=== PATIENT | male | born 1940 | race Caucasian/White ===

== ENCOUNTER 2017-02-09 15:25 | Observation (INO) | payer MEDICARE ==
[~2017-02-09] VITALS: Ht 185.4 cm; Wt 101.0 kg
[~2017-02-09 15:25] MED LIST: ASCO100089 PO; ASPI-973 PO; ATOR80TA PO; LISI10TA PO; METO25TA6 PO; ONDA-54 PO; POLY17PO6 PO; TAMS0.4C98 PO; ZYL100 PO
[2017-02-09 15:37] VITALS: BP 90/59; PULSE 58; RESP 16; O2SAT 98
--- NOTE | 2017-02-09 15:48 | ED.REPORT ---
HPI-General Illness Date of Service Feb 09, 2017 ED Provider: Christ Torres MD The pt is a 76 year old male with a history of hypertension, dementia, ischemic cardiomyopathy, CAD and hyperlipidemia who is referred to the ED from Urgent Care due to a fall versus syncopal event. The pt was reportedly arguing with his spouse yesterday, which involved "lots of pushing and shoving," then apparently left the home to go to a rest stop. He reportedly tripped and fell on cement at that point, hitting his head and losing consciousness for approximately 45 minutes. The pt returned home this morning complaining of a laceration on the left side of his forehead, left eye swelling and bruising, and rib pain. He was evaluated by paramedics but refused care until he was seen in Urgent Care. The patient repeatedly changes his story at one point stating that he had a syncopal event that resulted in his fall and later admitting that he does not know what happened. The patient's daughter is concerned about his safety at home. Nursing Notes Stated Complaint: FALL Chief Complaint: Multiple Trauma/Fall Nursing Notes Reviewed: Yes Allergies: Coded Allergies: losartan (Verified Allergy, Severe, Nausea,Vomiting, 02/09/17) Scheduled Ascorbic Acid (Vitamin C) 1,000 Mg Tab.chew 1,000 MG PO DAILY Aspirin (Aspirin) 81 Mg Tablet 81 MG PO DAILY Atorvastatin (Lipitor) 80 Mg Tablet 80 MG PO DAILY Lisinopril (Lisinopril) 10 Mg Tablet 5 MG PO BID Metoprolol Tartrate (Metoprolol Tartrate) 25 Mg Tablet 12.5 MG PO BID Ondansetron (Ondansetron) 8 Mg Tablet 8 MG PO Q8HRS Tamsulosin (Flomax) 0.4 Mg Capsule 0.4 MG PO DAILY Scheduled PRN Polyethylene Glycol 3350 (Miralax) 17 Gm Powd.pack 17 GM PO DAILY PRN PRN For Constipation General Time Seen by MD: 15:44 Chief Complaint Other (Fall) Hx Obtained From: Patient, Daughter Arrived By: Walk-in Sudden in Onset?: Yes Onset Occurred: 5 - 8 hours ago Symptom Duration: Since onset Recent Healthcare: No recent hospitalization, Recent doctor visit Similar Sx Previous: No Past Medical History 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 Colemna PCP: Dr. Duque Urologist: Dr. Hendrix Past Medical History bladder tumor with right hydronephrosis abdominal aortic aneurysm ischemic cardiomyopathy dementia hypertension hyperlipidemia osteoarthritis depression Reports: Coronary artery disease Past Surgical History Cardiac stent placement left hip ORIF right ureteral stent and nephrostomy tube placed on 01/18/2016 Smoking History Never Smoker Social History Alcohol Use: Denies alcohol use Other Social History: Good social support, , Local resident Ambulatory Status Independent Review of Systems laceration Full Review of Systems Respiratory: Denies: Non-productive cough, Shortness of breath Cardiovascular: Reports: Chest pain (ribs) GI: Denies: Abdominal pain, Vomiting Musculoskeletal: Denies: Back pain, Neck pain Skin: Denies Rash Neurologic: Reports: Change LOC Complete sys rev & neg: except as marked. Physical Exam Vital Signs Vital Signs Date Time Temp Pulse Resp B/P Pulse Ox O2 Delivery O2 Flow Rate FiO2 02/09/17 15:37 36.9 58 16 90/59 98 Room Air Initial VS: Reviewed General/Constitutional: Awake, Alert Head / Eyes: Normocephalic, PERRL, EOMI 2 cm laceration on the left forehead midface stable scalp appears atraumatic ENT: Atraumatic, Airway patent, Mucous membranes moist Neck: Supple, Full range of motion mild diffuse midline cervical tenderness no palpable bony deformities or step-offs Respiratory / Chest: Breath sounds NL, Breath sounds = bilat, No respiratory distress tenderness about left anterior costal margin no crepitus or palpable deformity Cardiovascular: Heart rate NL, Regular rhythm, Heart sounds NL, No gallop, No murmurs, No rubs Abdomen: Atraumatic, Soft, Non-tender, No distention Back: Atraumatic, Full range of motion back appears grossly atraumatic no midline thoracic or lumbar tenderness, bony deformities or step-offs Upper Extremities Upper Extremity / MS: Full range of motion, Neurologic intact, Vascular intact 1 cm laceration on the lateral aspect of the left hand and the base of the fifth digit Lower Extremity / Pelvis / MS: Atraumatic, Full range of motion pelvis stable to rock and compression Skin: Color NL, No rash, Warm, Dry contusion and 2 cm laceration left brow ecchymosis left periorbital area Neurologic: Oriented X3, Speech NL, No motor deficits, No sensory deficits Psychiatric: Affect NL, Mood NL Interpretation & Diagnostics Interpretation & Diagnostics: Rib X-Ray: IMPRESSION: Acute rib fracture is not identified. Dictated by: Bairon Sargent M.D. on 02/09/2017 at 19:50 Approved by: Bairon Sargent M.D. on 02/09/2017 at 19:53 Lab Results Interpretation Result Diagram: 02/09/17 1700 02/09/17 1700 Test 02/09/17 17:00 White Blood Count 10.8th/mm3 (3.8-10.1) Red Blood Count 4.09mil/mm3 (4.40-5.80) Hemoglobin 12.6g/dL (13.8-17.2) Hematocrit 37.8% (41.0-50.0) Mean Corpuscular Volume 92.4fL (81-100) Mean Corpuscular Hemoglobin 30.8pg (27.0-35.0) Mean Corpuscular Hemoglobin Concent 33.3% (32.0-37.0) Red Cell Distribution Width 14.4% (12.3-15.4) Platelet Count 241bil/L (150-400) Neutrophils (%) (Auto) 59.8% (40-74) Lymphocytes (%) (Auto) 25.3% (14-46) Monocytes (%) (Auto) 11.0% (4-12) Eosinophils (%) (Auto) 3.4% (0-5) Basophils (%) (Auto) 0.4% (0-3) Prothrombin Time 10.1sec (8.1-12.5) Prothromb Time International Ratio 0.95ratio Sodium Level 137mEq/L (134-144) Potassium Level 4.7mEq/L (3.5-5.2) Chloride Level 102mEq/L (97-108) Carbon Dioxide Level 21mmol/L (18-29) Blood Urea Nitrogen 35mg/dL (8-27) Creatinine 1.47mg/dL (0.76-1.27) Estimat Glomerular Filtration Rate 49mL/min (>59) Glucose Level 101mg/dL (60-99) Calcium Level 9.1mg/dL (8.5-10.1) Total Bilirubin 0.5mg/dL (0.0-1.2) Aspartate Amino Transf (AST/SGOT) 33U/L (0-50) Alanine Aminotransferase (ALT/SGPT) 24U/L (0-44) Alkaline Phosphatase 131U/L (25-160) Troponin T < 0.010ug/L (0.0-0.011) Total Protein 7.4g/dL (6.4-8.4) Albumin 3.9g/dL (3.4-5.0) Alcohols < 10mg/dL (0-10) ECG Interpretation ECG Interpretation: normal sinus rhythm with a rate of 54 borderline prolonged DE intervals borderline ST segment elevation in V1 and V2 T wave flattening in V5 and V6 inferior Q waves present when compared to prior dated 01/18/2017, multiple PVCs no longer present and borderline anteroseptal elevation remains Time: 17:45 Interpreted by: ED physician X-Ray Chest Interpretation Chest Xray Interpretation: IMPRESSION: No acute disease or traumatic change seen in the AP of the chest. Dictated by: Bairon Sargent M.D. on 02/09/2017 at 16:57 Approved by: Bairon Sargent M.D. on 02/09/2017 at 16:58 Interpretation / Wet Read by: Interpret - Radiologist X-Ray Interpretation Xray Interpretation: IMPRESSION: No fracture is seen of the pelvic ring or obturator rings or either hip joint. No fracture is seen in the AP view of the left femur. Dictated by: Bairon Sargent M.D. on 02/09/2017 at 16:59 Approved by: Bairon Sargent M.D. on 02/09/2017 at 17:02 X-Ray Ordered: Pelvis Interpretation / Wet Read by: Interpret - Radiologist CT Head Interpretation IMPRESSION: No intracranial acute abnormality is seen. Nondisplaced fracture of the anterior and posterior toro of the left maxillary sinus with a small amount of fluid air interfaced in the left maxillary sinus. Dictated by: Bairon Sargent M.D. on 02/09/2017 at 16:34 Approved by: Bairon Sargent M.D. on 02/09/2017 at 16:39 Interpretation / Wet Read by: Interpret - Radiologist CT C-Spine Interpretation IMPRESSION: 1. No fracture identified. No change is seen in the cervical spine since the study of 10/09/14 2. Severe disc degenerative disease from the C. three fourths through the C6-7 level with prominent anterior osteophytes flowing from C4-C5 and C6. Dictated by: Bairon Sargent M.D. on 02/09/2017 at 16:39 Approved by: Bairon Sargent M.D. on 02/09/2017 at 16:42 Interpretation / Wet Read by: Interpret - Radiologist Procedures Laceration Management Time: 17:05 Procedure Performed by: ED physician Consent / Setup / Site Prep: Informed consent provided, Consent from patient , Time-out performed, Hand hygiene observed, Stand sterile technique Location of Wound: left forehead Wound Length: 2 cm Local Anesthesia: Lidocaine w epi 1% Digital Block: No Wound Preparation: Normal saline Debridement: Minimal Irrigation: Copious Foreign Body Explore / Removal: Explored for foreign body Undermining / Margins: Flaps aligned Repair Skin: ___ O (5), Nylon # Sutures - Skin: 7 Suture Technique: Simple Post-Procedure / Complications: Antibiotic oint applied, Dressing applied, No complications, Condition improved, Tolerated procedure well, Patient stable Laceration Management: Applied Bacitracin and gauze Time: 17:05 Procedure Performed by: ED physician Consent / Setup / Site Prep: Informed consent provided, Consent from patient , Time-out performed, Hand hygiene observed, Stand sterile technique Location of Wound: flap laceration, lateral aspect of the left hand and the base of the fifth digit Wound Length: 1 cm Local Anesthesia: Lidocaine 1% Digital Block: Yes Digit Involved: Little finger left Wound Preparation: Normal saline Debridement: None Irrigation: Copious Foreign Body Explore / Removal: Explored for foreign body Undermining / Margins: Flaps aligned Repair Skin: ___ O (5), Nylon # Sutures - Skin: 2 Suture Technique: Simple Post-Procedure / Complications: Antibiotic oint applied, Dressing applied, No complications, Condition improved, Tolerated procedure well, Patient stable Re-Eval/Medical Decision Med Decision/Clinical Course The pt is a 76 year old male with a history of hypertension, dementia, ischemic cardiomyopathy, CAD and hyperlipidemia who is referred to the ED from Urgent Care due to a fall versus syncopal event. The pt was reportedly arguing with his spouse yesterday, which involved "lots of pushing and shoving," then apparently left the home to go to a rest stop. He reportedly tripped and fell on cement at that point, hitting his head and losing consciousness for approximately 45 minutes. The pt returned home this morning complaining of a laceration on the left side of his forehead, left eye swelling and bruising, and rib pain. He was evaluated by paramedics but refused care until he was seen in Urgent Care. The patient repeatedly changes his story at one point stating that he had a syncopal event that resulted in his fall and later admitting that he does not know what happened. The patient's daughter is concerned about his safety at home. Here in the emergency department the patient is afebrile with stable vital signs and examination as above. Upon arrival the patient was placed in a cervical collar. Airway, breathing and circulation were intact. Secondary survey was performed as documented above. Laboratory studies notable as below: CBC unremarkable CMP indicates acute kid injury with a BUN of35 Creatinine 1.47 Troponin negative Coagulation studies normal Alcohol negative EKG: normal sinus rhythm with a rate of 54 borderline prolonged DE intervals borderline ST segment elevation in V1 and V2 T wave flattening in V5 and V6 inferior Q waves present when compared to prior dated 01/18/2017, multiple PVCs no longer present and borderline anteroseptal elevation remains CT Head: IMPRESSION: No intracranial acute abnormality is seen. Nondisplaced fracture of the anterior and posterior toro of the left maxillary sinus with a small amount of fluid air interfaced in the left maxillary sinus. CT Cervical Spine: IMPRESSION: 1. No fracture identified. No change is seen in the cervical spine since the study of 10/09/14 2. Severe disc degenerative disease from the C. three fourths through the C6-7 level with prominent anterior osteophytes flowing from C4-C5 and C6. Rib X-Ray: IMPRESSION: Acute rib fracture is not identified. Chest X-Ray: IMPRESSION: No acute disease or traumatic change seen in the AP of the chest. Pelvis X-Ray: IMPRESSION: No fracture is seen of the pelvic ring or obturator rings or either hip joint. No fracture is seen in the AP view of the left femur. Patient presents with multiple traumatic injuries. His lacerations were repaired as documented above. He has a maxillary fracture which is likely nonoperative. This has been discussed with ENT and they will assist in his management on an inpatient basis. The patient's pain has been treated with hydromorphone and he was given IV fluids. The patient's EKG was initially not normal there were no obvious findings that would explain his possible syncope. The patient was maintained on telemetry monitoring demonstrated no significant arrhythmias. He had no significant electrolyte abnormalities. He was noted to have acute kidney injury likely consistent with dehydration. The cause of his potential syncope remains unclear. This was unwitnessed and I am unable to determine whether this could have been secondary to a seizure-like event though he has no history thereof. The patient is not safe to be discharged home as he is suffering from dementia, is not felt to be safe in his current living situation and has been falling and sustaining traumatic injuries. The patient has been admitted to the hospitalist service for further syncope workup, ongoing monitoring and ongoing management of his traumatic injuries. He was transferred in stable condition. Time of Eval: 15:44 Patient Status: Condition improved Re-Evaluation/Progress Note: Pt informed of the diagnosis and plan for admission during the initial interview. The pt understands and agrees with the plan. All questions are addressed at this time. Consultation #1: Referral / Consult Name: Joy Figueroa DO Consulted With: Hospitalist Call Returned at: 17:55 Nutrition Faculty Member: Agrees with eval, Agrees with plan, Accepts admit Note: Spoke with Dr. Figueroa, hospitalist, regarding pt's case. Dr. Figueroa agrees with the evaluation and agrees to admit the pt. Consultation #2: Referral / Consult Name: jJ Britt MD Consulted With: ENT Call Returned at: 18:04 Nutrition Faculty Member: Agrees with eval, Agrees with plan Note: Consulted with Dr. Britt, ENT, regarding pt's case. Dr. Britt agrees with the evaluation and plan. Counseled Regarding: Diagnosis, Lab results, Need for admission Discharge & Departure Primary Impression: Syncope Syncope type: unspecified Qualified Code: R55 - Syncope and collapse Additional Impressions: Left maxillary fracture Encounter type: initial encounter Fracture type: closed Qualified Code: S02.40DA - Maxillary fracture, left side, initial encounter for closed fracture Forehead laceration Encounter type: initial encounter Qualified Code: S01.81XA - Laceration without foreign body of other part of head, initial encounter Bradycardia Laceration of left hand Encounter type: initial encounter Foreign body presence: without foreign body Qualified Code: S61.412A - Laceration without foreign body of left hand, initial encounter Dementia Dementia type: unspecified type Dementia behavioral disturbance: with behavioral disturbance Qualified Code: F03.91 - Unspecified dementia with behavioral disturbance Altered mental status Altered mental status type: unspecified Qualified Code: R41.82 - Altered mental status, unspecified Disposition: ADMITTED TO HOSPITAL Discharge Condition All VS Reviewed: Yes Condition: Stable Referrals: Tank Duque DO (PCP) Scribe Attestation Portions of this note were transcribed by Kailey Bustamante. I, Dr. Torres personally performed the history, physical exam and medical decision-making; I reviewed and confirmed the accuracy of the information in the transcribed note. copies to: Tank Duque Beck O MD Feb 09, 2017 15:48 KAILEY BUSTAMANTE Feb 09, 2017 15:55
--- NOTE | 2017-02-09 16:40 | DRSVH ---
PROCEDURE: CT BRAIN WITHOUT CONTRAST ([id number]) INDICATIONS: trauma TECHNIQUE: Noncontrast 4.5 mm thick angled axial sections acquired from the foramen magnum to the vertex, with c oronal reformats. COMPARISON: [facility], CT, BRAIN W/O CONTRAST, 06/03/2011, 16:37. FINDINGS: Image quality: Excellent. CSF spaces: Basal cisterns are patent. No extra-axial fluid collections. The ventricles are symmet justin in size and shape. Brain: No intracranial bleeds or masses. There is a small extra-axial focus of abnormal signal that is unchanged in the left frontal area in the anterior midline and above the sinuses and series 4 imag e 24 that is unchanged since at least 06/03/11. There is cerebral volume loss for age, with resultant ventricular and sulcal prominence. There are periventricular and deep white matter chronic small ves mono ischemic changes. There is intracranial internal carotid artery atherosclerosis. Skull and face: There is a nondisplaced fracture of the left maxillary sinus posteriorly seen on seri es 3 images 5 and 6 and of the anterior wall of the left maxillary sinus and series 3 image 5 there i s some fluid in the left maxillary sinus. Calvarium and other visualized facial bones appear intact, without suspicious lesions. Sinuses: Visualized sinuses and mastoids are clear. IMPRESSION: No intracranial acute abnormality is seen. Nondisplaced fracture of the anterior and posterior toro of the left maxillary sinus with a small am ount of fluid air interfaced in the left maxillary sinus. Dictated by: Bairon Sargent M.D. on 02/09/2017 at 16:34 Approved by: Bairon Sargent M.D. on 02/09/2017 at 16:39
--- NOTE | 2017-02-09 16:43 | DRSVH ---
PROCEDURE: CT CERVICAL SPINE WITHOUT CONTRAST ([id number]) INDICATIONS: trauma TECHNIQUE: Noncontrast 3 mm thick sections acquired from the skull base to the T4 level. Sagittal and coronal r eformats were then constructed. For radiation dose reduction, the following was used: automated exp osure control, adjustment of mA and/or kV according to patient size. COMPARISON: [facility], CT, C-SPINE W/O CONTRAST, 09/30/2014, 14:32. FINDINGS: Image quality: Include Bones: No fractures or dislocations. Visualized superior ribs are intact. Soft tissues: Prevertebral soft tissues are normal in thickness. No paravertebral hematomas. No ap ical pneumothoraces. IMPRESSION: 1. No fracture identified. No change is seen in the cervical spine since the study of 10/09/14 2. Severe disc degenerative disease from the C. three fourths through the C6-7 level with prominent a nterior osteophytes flowing from C4-C5 and C6. Dictated by: Bairon Sargent M.D. on 02/09/2017 at 16:39 Approved by: Bairon Sargent M.D. on 02/09/2017 at 16:42
[2017-02-09] MEDS ORDERED: Ondansetron 2 mg/mL 2 mL Inj IVPUSH PRN ×2 (16:45→18:50)
[2017-02-09] MEDS ORDERED: Alum-Mag Hydrox-Simeth 30 mL Suspension PO PRN ×3 (16:45→18:55)
--- NOTE | 2017-02-09 17:00 | DRSVH ---
PROCEDURE: X-RAY CHEST, TWO VIEWS ([id number]) INDICATIONS: trauma TECHNIQUE: 2 views of the chest were acquired. COMPARISON: [facility], CR, XR CHEST 1VW (PORTABLE), 01/18/2016, 11:43. FINDINGS: Surgical changes and devices: site monitor leads are seen over the chest. Lungs and pleura: No pleural effusions or pneumothorax. Lungs are clear. Mediastinum: Mediastinal contours are normal. Heart size is normal. Bones and chest wall: No suspicious bony abnormalities. Soft tissues appear unremarkable. IMPRESSION: No acute disease or traumatic change seen in the AP of the chest. Dictated by: Bairon Sargent M.D. on 02/09/2017 at 16:57 Approved by: Bairon Sargent M.D. on 02/09/2017 at 16:58
--- NOTE | 2017-02-09 17:03 | DRSVH ---
PROCEDURE: X-RAY PELVIS, ONE OR TWO VIEWS ([id number]) INDICATIONS: trauma TECHNIQUE: An AP of the pelvis and an AP of the left femur were provided. COMPARISON: None. FINDINGS: Bones: No fractures or dislocations. No suspicious bony lesions. Previous intramedullary jannette and ca nnulated screws in the left femur are noted for fixation of a previous proximal femoral fracture. Soft tissues: Visualized bowel gas pattern is normal. No suspicious soft tissue calcifications. IMPRESSION: No fracture is seen of the pelvic ring or obturator rings or either hip joint. No fracture is seen in the AP view of the left femur. Dictated by: Bairon Sargent M.D. on 02/09/2017 at 16:59 Approved by: Bairon Sargent M.D. on 02/09/2017 at 17:02
[2017-02-09 17:37] LABS: BASOPHILS % (AUTO) 0.4 % (0-3); EOSINOPHILS % (AUTO) 3.4 % (0-5); Mean Corpuscular Hemoglobin 30.8 pg (27.0-35.0); Mean Corpuscular Volume 92.4 fL (81-100); NEUTROPHILS % (AUTO) 59.8 % (40-74); Platelet Count 241 bil/L (150-400)
[2017-02-09 17:50] LABS: INR 0.95 ratio
[2017-02-09 18:11] LABS: TROPONIN T < 0.010 ug/L (0.0-0.011)
[2017-02-09] MEDS ORDERED: HYDROmorphone 1 mg/mL Inj IVPUSH ONE (18:25)
[2017-02-09 18:45] VITALS: BP 148/84; PULSE 54; RESP 20; O2SAT 98
[2017-02-09] MEDS ORDERED: Polyethylene Glycol (PEG) 17 Gm Powder PO PRN (18:50)
[2017-02-09] MEDS ORDERED: 0.9% Sodium Chloride 1,000 ML IV SCH (18:52)
--- NOTE | 2017-02-09 19:07 | NUR ---
ED to [facility] Pt arrived from ED to [facility] at approximately 1840. Tucked pt into bed. Pt tolerated moving to bed, left hand wrapped with gauze CDI, LAC over left eye, eye bruised. Noticeable bump midline of forehead. Pt grimaced when moving legs onto bed holding midline UQ, states pain on movement. Pt states right hand hurts at thumb, bump noticed, with pain on palp. All info passed on in report to HS RN's. BP 109/66, HR 58.
[2017-02-09] MEDS ORDERED: Haloperidol 5 mg/mL Inj IVPUSH PRN (19:15)
[2017-02-09] MEDS: HYDROcodone-APAP 5-325 mg Tablet PO PRN (19:54)
--- NOTE | 2017-02-09 19:54 | DRSVH ---
PROCEDURE: X-RAY LEFT RIBS, TWO VIEWS ([id number]) INDICATIONS: pain with cough TECHNIQUE: 2 views of the left ribs were acquired. COMPARISON: [facility], CT, CT ABD PELVIS W CON, 12/20/2015, 4:10. FINDINGS: Surgical changes and devices: None. Bones and chest wall: No fractures or dislocations. There is an old irregularity of the anterior 10t h rib on the left. This is also seen on the CT scan of 12/20/15. No suspicious bony lesions. Overlyi ng soft tissues appear unremarkable. Lungs and pleura: The visualized lung appears clear. No pleural effusions or pneumothorax are visib le. IMPRESSION: Acute rib fracture is not identified. Dictated by: Bairon Sargent M.D. on 02/09/2017 at 19:50 Approved by: Bairon Sargent M.D. on 02/09/2017 at 19:53
[2017-02-09] MEDS: 0.9% Sodium Chloride 1,000 ML IV SCH (19:57)
[2017-02-09 20:12] VITALS: PULSE 61
[2017-02-09 20:15] VITALS: BP 170/77; PULSE 53; RESP 20; O2SAT 99
[2017-02-09 20:30] VITALS: BP 150/58; PULSE 50; RESP 20; O2SAT 100
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
[2017-02-09] MEDS: Famotidine Inj 20 MG in IV Premix 1 EACH IV SCH (21:09)
[2017-02-09 22:34] VITALS: BP 170/77; PULSE 53; RESP 20; O2SAT 99
[2017-02-09 23:07] LABS: APPEARANCE,URINE CLOUDY (CLEAR,HAZY); COLOR,URINE YELLOW (YELLOW); OCCULT BLOOD,URINE MODERATE (NEGATIVE); PH,URINE 5.5 (5.0-8.0); UROBILINOGEN,URINE NORMAL (NORMAL)
--- NOTE | 2017-02-09 23:27 | NUR ---
TELE @ ~0 per tele patient HR dropped into 30's with PVCs, patient laying in bed, alert and asymptomatic. MD aware, no metoprolol given this shift, will continue to monitor.
[2017-02-10] VITALS (11 sets, daily range): BP systolic 105–151; BP diastolic 62–80; PULSE 40–81; RESP 16–20; O2SAT 96–99
[2017-02-10] MEDS: Heparin 5,000 Unit/mL Inj SUBQ SCH ×3 (00:49→16:07)
[2017-02-10] MEDS: HYDROcodone-APAP 5-325 mg Tablet PO PRN ×2 (00:51→16:07)
[2017-02-10] MEDS: 0.9% Sodium Chloride 1,000 ML IV SCH ×2 (05:43→16:01)
[2017-02-10 06:09] LABS: BASOPHILS % (AUTO) 0.3 % (0-3); EOSINOPHILS % (AUTO) 5.2 % (0-5); MONOCYTES % (AUTO) 9.2 % (4-12); Mean Corpuscular Hemoglobin 30.9 pg (27.0-35.0); Mean Corpuscular Volume 93.5 fL (81-100); NEUTROPHILS % (AUTO) 48.2 % (40-74); Platelet Count 183 bil/L (150-400)
[2017-02-10 06:31] LABS: TROPONIN T 0.01 ug/L (0.0-0.011)
[2017-02-10] MEDS ORDERED: Non-Formulary Medication (Atorvastatin (Lipitor) 80 MG) PO SCH (08:30)
--- NOTE | 2017-02-10 12:44 | NUR ---
Case Management: SABA and Medicare Part D delivered and explained to pt. spouse and daughter per patient request. Signed original placed in chart. Copy left at bedside. Jaci Carias RN
--- NOTE | 2017-02-10 13:29 | NUR ---
Inpatient Wound Nurse Patient seen for L brow and L hand wounds. L brow noted with extensive bruising, yellow to purple, sutures intact, no drainage, very slight periwound erythema. Site requires no dressing since it is not draining. L hand sutures at lateral 5th finger/palm are intact with slight periwound erythema. Small amount of drainage noted on nonstick dressing. Wound was redressed and secured with Kerlix. No specific wound care is identified. Nursing staff may change nonstick dressing and Kerlix PRN and should alert [facility] RN if further wound care is needed.
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
--- NOTE | 2017-02-10 14:32 | DRSVH ---
PROCEDURE: US BILATERAL DUPLEX DOPPLER IMAGING OF THE CAROTIDS ([id number]) INDICATIONS: syncope TECHNIQUE: Color and pulse Doppler interrogation was performed of both carotid systems, with image documentation and velocity measurements. Imaging limited by a high bifurcations COMPARISON: None. FINDINGS: All stenosis calculations are based on NASCET criteria. Right side: Brachial blood pressure: 114/72 mm Hg. Common Carotid Artery(Distal) PSV: 81.90 cm/s Internal Carotid Artery PSV- Proximal: 75.40 cm/s Mid-lon.80 cm/s Distal: 68.50 cm/s EDV - Proximal: 13.90 cm/s Mid-lon.40 cm/s Distal: 18 cm/s External Carotid Artery(Proximal) PSV: 74 cm/s ICA/CCA PSV ratio: 0.92 Almendarez scale imaging description: Mild calcified plaque Percent internal carotid artery stenosis: Less than 50%. Vertebral artery: Flow direction is antegrade. Left side: Brachial blood pressure: Not measured Common Carotid Artery(Distal) PSV: 87.50 cm/s Internal Carotid Artery PSV - Proximal: 75.40 cm/s Mid-lon.50 cm/s Distal: 89.70 cm/s EDV - Proximal: 13.90 cm/s Mid-lon.40 cm/s Distal: 25 cm/s External Carotid Artery(Proximal) PSV: 55.90 cm/s ICA/CCA PSV ratio: 1.03 Almendarez scale imaging description: Small calcified plaque Percent internal carotid artery stenosis: Less than 50%. Vertebral artery: Flow direction is antegrade. IMPRESSION: Mild atheromatous disease bilaterally with no hemodynamically significant stenosis on either side. Dictated by: Justo So M.D. on 02/10/2017 at 14:27 Approved by: Justo So M.D. on 02/10/2017 at 14:30
--- NOTE | 2017-02-10 15:41 | DRSVH ---
[facility] [address] [place] [address] Echocardiogram Report Name: LAUREN LORA WStudy Tan e: 02/10/2017 Height: 73 in Hospital Exam Location: [facility] Weight: 218 lb Gender: Male BSA: 2.2 m2 : 1940 Age: 76 yrs BP: 130/62 mmHg Reason For Study: Syncope Ordering Physician: Performed By: Shi Jackson Referring Physician: Hector Coleman Interpretation Summary 1. Normal left ventricular size and wall thickness with an estimated EF of 50% 2. Grossly normal right ventricular size with normal systolic function. 3. No evidence for significant valvular pathology Compared to the previous study of 2014, no significant change Procedure: A two-dimensional transthoracic echocardiogram with color flow and Doppler was performed. The study quality was technically adequate. Comparison is made with the echocardiogram of 10/11/2014. A contrast injection of Definity was performed to improve assessment of LV function. The patient was in sinus bradycardia with heart rates between 46-56 bpm during the exam. Left Ventricle: The left ventricle is normal in size. Left ventricular wall thickness is at the upper limits of normal. Left ventricular ejection fraction is estimated to be 50%. Hypokinesis of the distal lateral/ inferolateral wall. Right Ventricle: Grossly normal size. The right ventricular systolic function is normal. Atria: Both atria are normal in size. Mitral Valve: The mitral valve is normal in structure and function. There is trace mitral regurgitation. Aortic Valve: There is discrete nodular thickening of the non- coronary cusp. The aortic valve opens well. No aortic regurgitation is present. Tricuspid Valve: The tricuspid valve leaflets are thin and pliable. There is trace tricuspid regurgitation. Pulmonary artery pressures cannot be estimated because of the lack of a measurable TR jet velocity. Pulmonic Valve: The pulmonic valve is not evaluated on today's exam. Great Vessels: The aortic root is normal size. The ascending aorta is mildly dilated at 4.2 cm. The IVC is of normal diameter and collapses less than 50% with a sniff. This suggests a right atrial pressure of 8 mm Hg. Pericardium/ Pleura There is no pericardial effusion. MMode/2D Measurements & Calculations LVIDd LA A2 area RA long axis: 5.0 cm LVOT diam: 2.2 cm : 5.3 cm AoV Openin.1 cm LVIDs RA area: 16.9 cm Ao root diam: 3.6 cm : 4.0 cm LA A4 area RA vol: 48.3 ml Aortic Jxn: 2.6 cm FS: 24.3 % RA : 21.6 ml/m2 asc Aorta Diam: 4.2 cm EPSS LA length (vol) : 0.8cm IVSd: 1.1 cm LA vol: 59.0 ml LVPWd LA vol index : 1.1 cm IVC diam: 1.9 cm LVAd ap4 LVAd ap2 LV summers. diameter/BSA LV sys. diameter/BSA : 28.1 2m : 32.1 cm (cm/m^2): 2.4 (cm/m^2): 1.8 LVLd ap2: 8.7 cm EDV(MOD-sp2) EDV(sp2-el) : 102.5 ml TAPSE : 2.9 cm Doppler Measurements & Calculations Ao V2 max MV E max endy MV E/A: 0.96 MV dec time: 0.22 sec : 157.1 cm/sec : 62.1 cm/sec Med Peak E' Endy Ao max P.9 mmHgMV A max endy Ao mean PG : 64.9 cm/sec E/E' med: 9.5 MV P1/2t Lat Peak E' Endy LVOT Max Endy : 65.7 msec : 91.9 cm/sec E/E' lat: 8.2 YA(I,D): 2.4 cm E/e' average sev ratio: 0.61 MV P1/2t max endy Ao V2 mean LV V1 max PG YA indexed to BSA : 106.8 cm/sec (cm^2/m^2): 1.1 MVA(P1/2t): 3.4 cm2Ao V2 VTI LV V1 VTI : 21.3 cm YA(V,D): 2.3 cm2 Reading Physician:03:41 PM
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
[2017-02-10] MEDS: Famotidine Inj 20 MG in IV Premix 1 EACH IV SCH (21:01)
[2017-02-11] MEDS: Heparin 5,000 Unit/mL Inj SUBQ SCH ×2 (00:22→10:19)
[2017-02-11] MEDS: 0.9% Sodium Chloride 1,000 ML IV SCH (00:51)
[2017-02-11 01:24] VITALS: BP 117/67; PULSE 73; RESP 18; O2SAT 95
[2017-02-11 06:16] VITALS: BP 121/71; PULSE 74; RESP 18; O2SAT 96
--- NOTE | 2017-02-11 06:30 | NUR ---
NPO Patient NPO after midnight for am stress test. Patient states he will not do stress test b/c last time he almost passed. Explained to patient that there is more than one way to do a stress test and he is open to having a conversation with the DrEmily about options. Later in shift he again stated he does not want a stress test. Will continue to keep NPO. Patient did not complain of pain during this shift. Currently awake in bed, call light within reach. Will continue to monitor.
[2017-02-11 08:12] VITALS: BP 116/63; PULSE 53; RESP 20; O2SAT 98
[2017-02-11 08:30] VITALS: BP 149/84
[2017-02-11 08:36] VITALS: BP 155/84; PULSE 56
--- NOTE | 2017-02-11 11:23 | PCM.DIMED ---
Discharge Instructions Date of Service Feb 11, 2017 Dates of Hospitalization Feb 09, 2017 at 18:21 Discharge Diagnosis Discharge Diagnosis Work up for Fall and possible LOC Diet Discharge Diet: Heart Healthy Call your provider Call your provider for: Fever or Chills, Shortness of breath, Bleeding, Chest pain, Vomitting, Excessive diarrhea, Weakness (unilateral), Other Patient Instructions Patient Instructions Please do not drive a motor vehicle until you are cleared by PCP. We have discussed your R leg weakness and hx of fall episodes followed by unconsciousness. We advise to avoid driving any form of motor vehicle. Follow-up plan Please F/U with Dr. Britt, ENT in 1-3 days for facial injury F/U with PCP in one week, we request that PCP reviews the EEG from this hospitalization, as the report is still pending. F/U with Urology Dr. Hendrix in 1-2 weeks F/U with Dr. Isaac in Cardiology in 1-2 weeks Outpatient Physical Therapy for 3 weeks is recommended for mobility/functional status F/U with Podiatry for R foot callus in one week Joy Figueroa DO Feb 11, 2017 11:23
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
--- NOTE | 2017-02-11 12:31 | NUR ---
DISCHARGE Patient and were present for discharge teaching. Instructed to check pulse prior to taking metoprolol, patient was able to identify 2 places to check pulse. 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 Went over extensive follow up for pending issues. IV site was removed without any problem, catheter intact. Patient got dressed with minimal assistance and transferred into wheelchair and was taken outside to 's vehicle.
--- NOTE | 2017-02-12 18:57 | PROCED ---
[address] [address] EEG PATIENT: LAUREN LORA : 1940 MR#: [id number] ADMIT: 02/09/2017 JOB ID: [id number] DATE OF SERVICE: 02/10/2017 HISTORY: The patient is a 76-year-old man with an episode of loss of consciousness. TECHNICAL DESCRIPTION: This digital EEG was recorded using 25 scalp and ear, and two EKG electrodes. It was reviewed in bipolar and referential montages following reformatting in the 10-20 [employer] Electrode Placement System. During the recording, the patient was noted to be awake and drowsy. No sleep was appreciated. The background was composed of an 8.5-9 hertz, 20-50 microvolt, symmetrical and reactive posterior dominant rhythm that attenuated with eye opening. The rest of the background was composed of low voltage faster frequencies. There were no focal, lateralized, or epileptiform discharges noted. There were no seizures seen. Hyperventilation was not performed. Photic stimulation from 1-30 hertz did not elicit any photic driving response. No sleep was appreciated during this recording. The EKG rhythm strip revealed a heart rate of 60 to 80 beats per minute with occasional premature ventricular complexes. IMPRESSION: This EEG performed in the awake and drowsy states is within normal limits. If clinically indicated, a repeat study capturing the transition to and from sleep states, as well as sleep states, may be warranted. If clinically indicated, a 12-lead electrocardiogram may be helpful. Clinical correlation is advised.
== END 2017-02-11 13:10 | disposition home or self-care (01) ==
LOC: SED 15:25 → OSC 18:21
PROVIDERS: ADMIT Family Medicine; ATTEND Family Medicine
DX: S01.112A Laceration without foreign body of left eyelid and periocular area, initial encounter (principal); S61.217A Laceration without foreign body of left little finger without damage to nail, initial encounter; S02.40DA Maxillary fracture, left side, initial encounter for closed fracture; R55 Syncope and collapse; W01.0XXA Fall on same level from slipping, tripping and stumbling without subsequent striking against object, initial encounter; Y93.01 Activity, walking, marching and hiking; I12.9 Hypertensive chronic kidney disease with stage 1 through stage 4 chronic kidney disease, or unspecified chronic kidney disease; N18.3 Chronic kidney disease, stage 3 (moderate); I71.4 Abdominal aortic aneurysm, without rupture; F03.90 Unspecified dementia, unspecified severity, without behavioral disturbance, psychotic disturbance, mood disturbance, and anxiety; E78.5 Hyperlipidemia, unspecified; I25.10 Atherosclerotic heart disease of native coronary artery without angina pectoris; I25.5 Ischemic cardiomyopathy; Z79.82 Long term (current) use of aspirin
CPT/HCPCS: 12001; 12011; 36415; 70450; 71020; 71100; 72125; 72170; 80053; 80061; 81000; 83036; 84484; 85025; 85610; 86850; 87086; 87088; 93005; 93880; 95819; 96374; 96375; 96376; 99285; C8929; G0378; G0480; J1644; J2405; J3490; J7030; Q9957